=== PATIENT | female | born 1960 | race Caucasian/White ===

== ENCOUNTER 2016-09-01 14:06 | Emergency (ER) | payer BC ==
[2016-09-01 14:48] VITALS: BP 115/65; PULSE 93; TEMP 97.9; BMI 25.7
--- NOTE | 2016-09-01 14:51 | PDOC ---
History of Present Illness - General History Source: Patient Exam Limitations: No Limitations - History of Present Illness Initial Comments: 09/01/16 15:53 The patient is a 56 year old female with significant past medical history of schizophrenia and depression who presents today s/p mechanical fall down stairs this afternoon. The patient states she tripped and fell down 7 stairs, and then rolled off the platform and fell onto the floor (equivalent of ~6 stairs). The patient states she hit her head but denies any LOC. The patient is currently complaining of left rib pain and right lower extremity pain. The rib pain is worse with deep inspiration and does not radiate. She cannot move her toes secondary to pain . The patient denies any headache. She denies any vision changes, blurry vision, or headache. She denies any nausea or vomiting since the fall. She denies recent illness, fevers, or chills. <Clara Landa - Last Filed: 09/01/16 15:53> <Umesh Schultz - Last Filed: 09/01/16 20:13> - General Chief Complaint: Injury Stated Complaint: FALL Time Seen by Provider: 09/01/16 14:35 Past History <Clara Landa - Last Filed: 09/01/16 15:53> - Past Medical History Psychiatric Problems: Yes (depression, schizophrenia) - Surgical History Appendectomy: Yes - Psycho/Social/Smoking Cessation Hx Anxiety: No Suicidal Ideation: No Smoking Status: No Smoking History: Never smoked Have you smoked in the past 12 months: No Number of Cigarettes Smoked Daily: 0 Information on smoking cessation initiated: No Hx Alcohol Use: No Drug/Substance Use Hx: No Substance Use Type: None <Umesh Schultz - Last Filed: 09/01/16 20:13> - Past Medical History Allergies/Adverse Reactions: Allergies Allergy/AdvReac Type Severity Reaction Status Date / Time No Known Allergies Allergy Verified 09/01/16 14:48 Home Medications: Ambulatory Orders Alprazolam [Xanax] 1 mg PO BID PRN #14 tablet 02/01/14 BUPROPion HCL "SR" [Wellbutrin Sr -] 150 mg PO BID 02/01/14 Buspirone HCl [Buspar -] 5 mg PO BID 02/01/14 Phendimetrazine Tartrate 35 mg PO DAILY 02/01/14 Risperidone 1 mg PO DAILY 02/01/14 Trazodone HCl [Desyrel -] 100 mg PO HS 02/01/14 Oxycodone HCl/Acetaminophen [Percocet 5-325 mg Tablet] 1 - 2 tab PO Q6H PRN #30 tab MDD 8 09/01/16 Review of Systems - Review of Systems Constitutional: No: Chills, Fever Respiratory: Yes: Shortness of Breath Musculoskeletal: Yes: Joint Pain, Muscle Pain All Other Systems: Reviewed and Negative <Umesh Schultz - Last Filed: 09/01/16 20:13> *Physical Exam - Vital Signs Last Vital Signs Temp Pulse Resp BP Pulse Ox 97.9 F 93 H 20 115/65 93 L 09/01/16 14:44 09/01/16 14:44 09/01/16 14:44 09/01/16 14:44 09/01/16 14:44 - Physical Exam Comments: 09/01/16 15:54 General: Patient is alert and in no acute distress. Speech is clear and appropriate. Head: +2cm right forehead ecchymosis over the eyebrow, no laceration. HEENT: Pupils are equal round and reactive to light, extraocular movements are intact. The tympanic membranes are clear, no hemotympanum. No facial deformity/ tenderness, no septal hematoma. The oropharynx is clear. Neck: The trachea is midline, there is no stridor. There is no midline cervical spine tenderness, full range of motion of neck. +Some left paraspinal discomfort with ROM of the neck. No JVD. Chest: +Left ribs with diffuse tenderness to palpation. Skin intact, no obvious bruising. Heart: +Slight tachycardic, regular rhythm. S1-S2. No murmurs. Lungs: Clear to auscultation bilaterally. Symmetric chest rise. Abdomen: Soft/nontender/nondistended. Bowel sounds are normal. There is no abdominal or flank ecchymosis. Back/Pelvis: There is no midline spine tenderness or step-off. Pelvis is stable and nontender. Extremities: +Right patella intact. There is gross deformity with ecchymosis and soft tissue swelling around the right mid tibia. Skin intact. Palpable dp pulses. Sensation is grossly intact. Remainder of extremities is normal. Neuro: Alert and oriented x3. Cranial nerves II through XII are intact. 5 out of 5 motor strength x4 extremities. Piugnq-winw-lxugyl is intact. No pronator drift. Gait is stable. Skin: No abrasions/hematomas/lacerations unless noted elsewhere. Psych: Affect is appropriate. <CordellClara - Last Filed: 09/01/16 15:53> - Vital Signs Last Vital Signs Temp Pulse Resp BP Pulse Ox 97.9 F 93 H 20 115/65 93 L 09/01/16 14:44 09/01/16 14:44 09/01/16 14:44 09/01/16 14:44 09/01/16 14:44 <Umesh Schultz - Last Filed: 09/01/16 20:13> ED Treatment Course - LABORATORY CBC & Chemistry Diagram: 09/01/16 15:30 09/01/16 15:30 - Medications Given in the ED: ED Medications Discontinued Medications Generic Name Dose Route Start Last Admin Trade Name Freq PRN Reason Stop Dose Admin Hydromorphone HCl 0.5 mg 09/01/16 14:52 09/01/16 15:07 Dilaudid Injection - IVPUSH 09/01/16 14:53 0.5 mg ONCE ONE Administration Ondansetron HCl 4 mg 09/01/16 14:52 09/01/16 15:07 Zofran Injection IVPUSH 09/01/16 14:53 4 mg ONCE ONE Administration <Clara Landa - Last Filed: 09/01/16 15:53> - LABORATORY CBC & Chemistry Diagram: 09/01/16 15:30 09/01/16 15:30 <Umesh Schultz - Last Filed: 09/01/16 20:13> Medical Decision Making - Critical Care Time Total Critical Care Time (minutes): 40 Critical Care Statement: The care of this patient involved high complexity decision making to prevent further life threatening deterioration of the patient 's condition and/or to evalute & treat vital organ system(s) failure or risk of failure. - Medical Decision Making 09/01/16 15:17 A portion of this note was documented by scribe services under my direction. I have reviewed the details of the note, within reason, and agree with the documentation with the following case summary and management plan written by me. 56-year-old female with no significant past medical history p/w L rib and R leg pain after fall down stairs. + head injury without LOC. exam as noted likely rib fractures, r/o ptx ct head, ct cspine obvious R tib/fib fx, skin intact. Ortho consult pain control 09/01/16 19:06 Labs are within normal limits, CK is normal. Imaging notable only for left seventh rib fracture without pneumothorax or pleural effusion. There is no right tibia/fibula fracture, no pelvic or lumbar sacral spine fractures. On reassessment, patient remains neurovascularly intact and neurologically intact. She has a right anterior medial hematoma to the right julio, but has full range of motion without vascular or sensory compromise. Discussed with orthopedics, Dr. Bowser, any potential concern for compartment syndrome but given the location of the hematoma and the exam, can manage as outpatient with prompt follow-up in his office tomorrow. Percocet trial for rib fracture, which is currently the patient's main complaint. We'll reassess. 09/01/16 20:03 Now ambulating with some discomfort, respiratory status is normal, O2 sat is 99 % on room air. She is able to weight-bear on the right lower extremity, remains neurovascularly intact. Discussed the importance of pain control and incentive spirometry for her rib fracture, discussed the importance of ice and elevation for her right leg injury. Patient can follow-up with Dr. Salgado of orthopedics tomorrow. at bedside, understand return criteria. <Umesh Schultz - Last Filed: 09/01/16 20:13> *DC/Admit/Observation/Transfer - Attestations Scribe Attestion: 09/01/16 15:54 Documentation prepared by Clara Landa, acting as medical office administrator for Umesh Schultz MD. <Clara Landa - Last Filed: 09/01/16 15:53> <Umesh Schultz - Last Filed: 09/01/16 20:13> Diagnosis at time of Disposition: Accidental fall Qualifiers: Encounter type: initial encounter Qualified Code(s): W19.XXXA - Unspecified fall, initial encounter Lower leg fracture Qualifiers: Encounter type: initial encounter Fracture type: closed Laterality: right Qualified Code(s): S82.91XA - Unspecified fracture of right lower leg, initial encounter for closed fracture Left rib fracture Qualifiers: Encounter type: initial encounter Rib fracture type: single rib Fracture type: closed Qualified Code(s): S22.32XA - Fracture of one rib, left side, initial encounter for closed fracture - Discharge Dispostion Disposition: HOME Condition at time of disposition: Improved - Prescriptions Prescriptions: Oxycodone HCl/Acetaminophen [Percocet 5-325 mg Tablet] 1 - 2 tab PO Q6H PRN #30 tab MDD 8 PRN Reason: Pain - Referrals Referrals: Dorian Styles MD [Primary Care Provider] - Tyrone Salgado MD [Staff Physician] - - Patient Instructions Printed Discharge Instructions: DI for Rib Fracture, DI for Contusion Additional Instructions: Activity as tolerated. Stay hydrated. Sorry this happened to you. Extensive imaging shows that the only injury you sustained is a Left 7th rib fracture. The injury to your leg is a muscle bruise. Take percocet as prescribed as needed for pain. Percocet can make you lightheaded, so take proper precautions. It is very important that you take 10- 20 deep breaths every hour to expand your lungs and prevent infection. It is also very important that you ice and elevate the affected areas for 20 minutes every 3-4 hours to reduce swelling. Continue your medications as previously prescribed by your physician. You should follow up with Dr. Salgado of Orthopedics TOMORROW regarding the leg swelling. You should also see your primary doctor regarding today's emergency department visit. Return to the emergency department for any new or concerning symptoms, particularly difficulty breathing or fevers or chills, severe swelling or discoloration or numbness, intolerable pain.
[2016-09-01] MEDS ORDERED: ONDANSETRON 4 MG/2 ML VIAL IVPUSH ONE (14:52)
[2016-09-01] MEDS ORDERED: HYDROmorphone HCL CARPU-JECT 1 MG/1 ML DISP.SYRIN IVPUSH ONE (14:52)
[2016-09-01] MEDS ORDERED: HYDROmorphone HCL CARPU-JECT 1 MG/1 ML DISP.SYRIN ONE (14:56)
[2016-09-01] MEDS ORDERED: ONDANSETRON 4 MG/2 ML VIAL ONE (14:57)
[2016-09-01 15:52] LABS: BASOPHIL 0.4 % (0-2.0); EOSINOPHIL 1.4 % (0-4.5); MCH 29.8 pg (25.7-33.7); MCHC 33.2 g/dl (32.0-36.0); MEAN CELL VOLUME 89.8 fl (80-96); MEAN PLT VOLUME 8.1 fl (7.5-11.1); NEUTROPHILS 74.7 % (42.8-82.8); PLATELET COUNT 307 K/MM3 (134-434); RDW 13.5 % (11.6-15.6); WHITE BLOOD COUNT 10.9 K/mm3 (4.0-10.0)
[2016-09-01 16:12] LABS: ALBUMIN 3.8 g/dl (3.4-5.0); ANION GAP 9 (8-16); CALCIUM 9.9 mg/dL (8.5-10.1); CO2 26 mmol/L (21-32); CREATININE 0.9 mg/dL (0.55-1.02); GLUCOSE,RANDOM 88 mg/dL (74-106); SGOT/AST 18 U/L (15-37); SGPT/ALT 26 U/L (12-78)
[2016-09-01 16:15] LABS: ALK PHOS 92 U/L (45-117); BILIRUBIN,TOTAL 0.5 mg/dL (0.2-1.0); TROPONIN I < 0.02 ng/ml (0.00-0.05)
[2016-09-01 16:23] LABS: INR 1.12 (0.82-1.09); PROTHROMBIN TIME (PATIENT) 12.4 SEC (9.98-11.88)
[2016-09-01 16:25] LABS: ACTIVATED PTT 31.7 SECONDS (26.9-34.4)
[2016-09-01] MEDS ORDERED: OXYCODONE/APAP 5/325MG COMBO TABLET PO ONE (17:56)
[2016-09-01] MEDS ORDERED: OXYCODONE/APAP 5/325MG COMBO TABLET ONE (18:02)
[2016-09-01] MEDS ORDERED: KETOROLAC TROMETHAMINE 30 MG/1 ML VIAL IVPUSH ONE (19:38)
[2016-09-01] MEDS ORDERED: KETOROLAC TROMETHAMINE 30 MG/1 ML VIAL ONE (19:39)
== END 2016-09-01 20:38 | disposition home or self-care (01) ==
LOC: JER 14:06
PROC: 3E033NZ Introduction of Analgesics, Hypnotics, Sedatives into Peripheral Vein, Percutaneous Approach (ICD-10-PCS; principal; 2016-09-01)
PROC: 3E0333Z Introduction of Anti-inflammatory into Peripheral Vein, Percutaneous Approach (ICD-10-PCS; 2016-09-01)
PROC: 3E033GC Introduction of Other Therapeutic Substance into Peripheral Vein, Percutaneous Approach (ICD-10-PCS; 2016-09-01)
DX: S82.91XA Unspecified fracture of right lower leg, initial encounter for closed fracture (principal); S22.32XA Fracture of one rib, left side, initial encounter for closed fracture; W10.9XXA Fall (on) (from) unspecified stairs and steps, initial encounter; Y93.9 Activity, unspecified; Y92.9 Unspecified place or not applicable; F20.9 Schizophrenia, unspecified; F32.9 Major depressive disorder, single episode, unspecified
CPT/HCPCS: 36415; 70450-TC; 71101-TC; 72100-TC; 72125-TC; 72170-TC; 73590-TC-RT; 80053; 82550; 84484; 85025; 85610; 85730; 86850; 86900; 86901; 99282-25

== ENCOUNTER 2016-11-15 15:57 | Emergency (ER) | payer BC ==
[2016-11-15 16:19] VITALS: BP 132/99; PULSE 82; TEMP 97.9; BMI 27.6
[2016-11-15 17:05] LABS: BASOPHIL 1.2 % (0-2.0); EOSINOPHIL 5.3 % (0-4.5); MCH 29.7 pg (25.7-33.7); MCHC 32.9 g/dl (32.0-36.0); MEAN CELL VOLUME 90.3 fl (80-96); MEAN PLT VOLUME 8.1 fl (7.5-11.1); NEUTROPHILS 48.6 % (42.8-82.8); PLATELET COUNT 366 K/MM3 (134-434); RDW 13.1 % (11.6-15.6); WHITE BLOOD COUNT 8.9 K/mm3 (4.0-10.0)
[2016-11-15] MEDS ORDERED: OXYCODONE/APAP 5/325MG COMBO TABLET PO ONE (17:27)
[2016-11-15] MEDS ORDERED: CYCLOBENZAPRINE HCL 10 MG TABLET (FP) PO ONE (17:27)
[2016-11-15] MEDS ORDERED: CYCLOBENZAPRINE HCL 10 MG TABLET (FP) ONE (17:32)
[2016-11-15] MEDS ORDERED: OXYCODONE/APAP 5/325MG COMBO TABLET ONE (17:32)
--- NOTE | 2016-11-15 17:37 | PDOC ---
History of Present Illness - General History Source: Patient Exam Limitations: No Limitations - History of Present Illness Initial Comments: 11/15/16 18:11 The patient is a 56 year old female, with a significant past medical history of schizophrenia and depression, who presents to the emergency department with chest pain for the past 3 days. She describes her chest pain as ranging from mild to moderate, without radiation. She notes that the pain is exacerbated when she moves in certain positions. She denies any recent injuries or illness. Upon arrival a rapid response was called as the patients chest pain exacerbated. The patient denies shortness of breath, headache and dizziness. Denies fever, chills, nausea, vomit, diarrhea and constipation. Denies dysuria, frequency, urgency and hematuria. Allergies: Past surgical history: Appendectomy Social history: No alcohol, tobacco or drug use reported <Kwaku Nicole - Last Filed: 11/15/16 18:10> - General History Source: Patient, Family Exam Limitations: No Limitations <Supa Limon - Last Filed: 11/15/16 19:51> - General Chief Complaint: Chest Pain Stated Complaint: PAIN Time Seen by Provider: 11/15/16 17:00 Past History <Kwaku Nicole - Last Filed: 11/15/16 18:10> - Past Medical History Psychiatric Problems: Yes (depression, schizophrenia) - Surgical History Appendectomy: Yes - Psycho/Social/Smoking Cessation Hx Anxiety: Yes Suicidal Ideation: No Smoking Status: No Smoking History: Never smoked Have you smoked in the past 12 months: No Number of Cigarettes Smoked Daily: 0 Hx Alcohol Use: No Drug/Substance Use Hx: No Substance Use Type: None <Supa Limon - Last Filed: 11/15/16 19:51> - Past Medical History Allergies/Adverse Reactions: Allergies Allergy/AdvReac Type Severity Reaction Status Date / Time No Known Allergies Allergy Verified 11/15/16 16:14 Home Medications: Ambulatory Orders BUPROPion HCL "SR" [Wellbutrin Sr -] 150 mg PO DAILY 02/01/14 Risperidone 1 mg PO DAILY 02/01/14 Trazodone HCl [Desyrel -] 100 mg PO HS 02/01/14 Cyclobenzaprine HCl [Flexeril 10 mg] 10 mg PO TID PRN #21 tablet 11/15/16 Oxycodone HCl/Acetaminophen [Percocet 5-325 mg Tablet] 1 tab PO Q6H PRN #15 tablet MDD 4 11/15/16 Paroxetine HCl [Paxil] 0 mg PO DAILY 11/15/16 Review of Systems - Review of Systems Able to Perform ROS?: Yes Comments:: 11/15/16 18:11 GENERAL/CONSTITUTIONAL: No fever or chills. No weakness. HEAD, EYES, EARS, NOSE AND THROAT: No change in vision. No ear pain or discharge. No sore throat. CARDIOVASCULAR: (+) Chest pain. No shortness of breath RESPIRATORY: No cough, wheezing, or hemoptysis. GASTROINTESTINAL: No nausea, vomiting, diarrhea or constipation. GENITOURINARY: No dysuria, frequency, or change in urination. MUSCULOSKELETAL: No joint or muscle swelling or pain. No neck or back pain. SKIN: No rash NEUROLOGIC: No headache, vertigo, loss of consciousness, or change in strength/ sensation. ENDOCRINE: No increased thirst. No abnormal weight change HEMATOLOGIC/LYMPHATIC: No anemia, easy bleeding, or history of blood clots. ALLERGIC/IMMUNOLOGIC: No hives or skin allergy. <Kwaku Nicole - Last Filed: 11/15/16 18:10> *Physical Exam - Vital Signs Last Vital Signs Temp Pulse Resp BP Pulse Ox 97.9 F 82 18 132/99 99 11/15/16 16:00 11/15/16 16:00 11/15/16 16:00 11/15/16 16:00 11/15/16 16:00 - Physical Exam Comments: 11/15/16 18:10 GENERAL: Awake, alert, and fully oriented, in no acute distress HEAD: No signs of trauma, normocephalic, atraumatic EYES: PERRLA, EOMI, sclera anicteric, conjunctiva clear ENT: Auricles normal inspection, hearing grossly normal, nares patent, oropharynx clear without exudates. Moist mucosa NECK: Normal ROM, supple, no lymphadenopathy, JVD, or masses LUNGS: No distress, speaks full sentences, clear to auscultation bilaterally HEART: Regular rate and rhythm, normal S1 and S2, no murmurs, rubs or gallops, peripheral pulses normal and equal bilaterally. ABDOMEN: Soft, nontender, normoactive bowel sounds. No guarding, no rebound. No masses MUSCULOSKELETAL: (+) Right lateral chest with tenderness to palpation with muscle spasm. EXTREMITIES: Normal inspection, Normal range of motion, no edema. No clubbing or cyanosis. NEUROLOGICAL: Cranial nerves II through XII grossly intact. Normal speech, normal gait, no focal sensorimotor deficits SKIN: Warm, Dry, normal turgor, no rashes or lesions noted. <Kwaku Nicole - Last Filed: 11/15/16 18:10> - Vital Signs Last Vital Signs Temp Pulse Resp BP Pulse Ox 97.9 F 82 18 132/99 99 11/15/16 16:00 11/15/16 16:00 11/15/16 16:00 11/15/16 16:00 11/15/16 16:00 <Supa Limon - Last Filed: 11/15/16 19:51> Heart Score/ECG Review - History History: Slightly suspicious - Electrocardiogram EKG: Normal - Age Age: 45-65 - Risk Factors Based on the list above the patient has:: No risk factors known - Troponin Troponin: </= normal limit - Score Heart Score - Total: 1 #1 ECG reviewed & interpreted by me at: 16:10 11/15/16 17:32 NSR 85, no std/harshal, normal axis, normal intervals, QTC 421 msec <Supa Limon - Last Filed: 11/15/16 19:51> ED Treatment Course - LABORATORY CBC & Chemistry Diagram: 11/15/16 16:58 11/15/16 16:58 - ADDITIONAL ORDERS Additional order review: Laboratory Results 11/15/16 16:58 Sodium 143 Potassium 4.5 Chloride 106 Carbon Dioxide 27 Anion Gap 10 BUN 23 H Creatinine 1.1 H D Creat Clearance w eGFR 51.20 Random Glucose 98 Calcium 10.1 Total Bilirubin 0.2 D AST 20 ALT 40 D Alkaline Phosphatase 126 H D Creatine Kinase 97 Troponin I < 0.02 C-Reactive Protein < 0.3 Total Protein 7.4 Albumin 4.0 11/15/16 16:58 RBC 4.27 MCV 90.3 MCHC 32.9 RDW 13.1 MPV 8.1 Neutrophils % 48.6 D Lymphocytes % 36.5 D Monocytes % 8.4 Eosinophils % 5.3 H D Basophils % 1.2 - Medications Given in the ED: ED Medications Discontinued Medications Generic Name Dose Route Start Last Admin Trade Name Mai PRN Reason Stop Dose Admin Cyclobenzaprine HCl 10 mg 11/15/16 17:27 11/15/16 17:35 Flexeril - PO 11/15/16 17:28 10 mg ONCE ONE Administration Oxycodone/Acetaminophen 1 combo 11/15/16 17:27 11/15/16 17:35 Percocet 5/325 - PO 11/15/16 17:28 1 combo ONCE ONE Administration <Kwaku Nicole - Last Filed: 11/15/16 18:10> - LABORATORY CBC & Chemistry Diagram: 11/15/16 16:58 11/15/16 16:58 - ADDITIONAL ORDERS Additional order review: 11/15/16 16:58 RBC 4.27 MCV 90.3 MCHC 32.9 RDW 13.1 MPV 8.1 Neutrophils % 48.6 D Lymphocytes % 36.5 D Monocytes % 8.4 Eosinophils % 5.3 H D Basophils % 1.2 - RADIOLOGY Radiology Studies Ordered: Category Date Time Status CHEST PA & LAT [RAD] Stat Radiology 11/15/16 16:38 Ordered <Supa Limon - Last Filed: 11/15/16 19:51> Medical Decision Making - Medical Decision Making 11/15/16 17:33 A portion of this note was documented by scribe services under my direction. I have reviewed the details of the note, within reason, and agree with the documentation with the following case summary and management plan written by me. Patient treated in the ED. Nursing notes are reviewed and incorporated into the medical decision-making. Vital signs reviewed. Peripheral IV access obtained by the nurse, laboratory studies are drawn and sent, reviewed and interpreted by myself. Vital Signs Temp Pulse Resp BP Pulse Ox 97.9 F 82 18 132/99 99 11/15/16 16:00 11/15/16 16:00 11/15/16 16:00 11/15/16 16:00 11/15/16 16:00 56-year-old female with history of anxiety presents with right chest wall pain. Patient reports that on Tuesday, she started developing right chest wall spasms. Denies recent illnesses, injuries, increased exercising or activity. Stated that every time she moves or touches the right side the chest, she feels muscle spasm. Denies midsternal chest pressure shortness of breath. Denies radiation. She saw her primary care physician today Dr. Styles who sent the patient for outpatient blood work including CBC with differential, ESR and a chest x-ray PA and lateral. However, upon arrival to registration, patient started developing severe right chest wall spasm and rapid response was called. Patient is brought to the ED. Patient's EKG is reassuring. The blood work was ordered as requested by the primary care physician. Chest x-ray ordered as well. However, I suspect that this is muscle spasm from the physical exam. We'll trial Percocet and Flexeril reassess. 11/15/16 19:47 CBC, BMP 11/15/16 16:58 11/15/16 16:58 CMP Sodium 143 mmol/L (136-145) 11/15/16 16:58 Potassium 4.5 mmol/L (3.5-5.1) 11/15/16 16:58 Chloride 106 mmol/L (98-107) 11/15/16 16:58 Carbon Dioxide 27 mmol/L (21-32) 11/15/16 16:58 Anion Gap 10 (8-16) 11/15/16 16:58 BUN 23 mg/dL (7-18) H 11/15/16 16:58 Creatinine 1.1 mg/dL (0.55-1.02) H D 11/15/16 16:58 Creat Clearance w eGFR 51.20 (>60) 11/15/16 16:58 Random Glucose 98 mg/dL (74-106) 11/15/16 16:58 Calcium 10.1 mg/dL (8.5-10.1) 11/15/16 16:58 Total Bilirubin 0.2 mg/dL (0.2-1.0) D 11/15/16 16:58 AST 20 U/L (15-37) 11/15/16 16:58 ALT 40 U/L (12-78) D 11/15/16 16:58 Alkaline Phosphatase 126 U/L (45-117) H D 11/15/16 16:58 Creatine Kinase 97 IU/L (26-192) 11/15/16 16:58 Troponin I < 0.02 ng/ml (0.00-0.05) 11/15/16 16:58 C-Reactive Protein < 0.3 MG/DL (0.00-0.3) 11/15/16 16:58 Total Protein 7.4 g/dl (6.4-8.2) 11/15/16 16:58 Albumin 4.0 g/dl (3.4-5.0) 11/15/16 16:58 11/15/16 19:47 ESR 17. Chest xray reviewed. Calcification vs. nodule on left 4th rib. Recommends CT scan. Results given to the patient. Pending CT chest. Pt reports feeling better with percocet and flexeril. Case signed out to [facility] ED attending DR. Donald for further management and disposition. <Supa Limon - Last Filed: 11/15/16 19:51> *DC/Admit/Observation/Transfer - Attestations Scribe Attestion: 11/15/16 18:10 Documentation prepared by Kwaku Nicole, acting as medical review specialist for Supa Limon MD <Kwaku Nicole - Last Filed: 11/15/16 18:10> - Discharge Dispostion Admit: No <Supa Limon - Last Filed: 11/15/16 19:51> Diagnosis at time of Disposition: Muscle spasm - Discharge Dispostion Condition at time of disposition: Improved - Prescriptions Prescriptions: Cyclobenzaprine HCl [Flexeril 10 mg] 10 mg PO TID PRN #21 tablet PRN Reason: Muscle Spasm Oxycodone HCl/Acetaminophen [Percocet 5-325 mg Tablet] 1 tab PO Q6H PRN #15 tablet MDD 4 PRN Reason: Pain Level 6-10 - Referrals Referrals: Dorian Styles MD [Primary Care Provider] - - Patient Instructions Printed Discharge Instructions: DI for Atypical Chest Pain Additional Instructions: Your right sided chest pain is likely secondary to the spasm. Please bring a copy of your reports to your doctor. Take 1 tablet of percocet every 6 hours as needed for pain. For muscle spasm, please take a tablet of flexeril every 8 hours as needed. This medication may make you drowsy so please do not drink or drive. Follow up with your doctor.
[2016-11-15 17:42] LABS: ANION GAP 10 (8-16); BILIRUBIN,TOTAL 0.2 mg/dL (0.2-1.0); CALCIUM 10.1 mg/dL (8.5-10.1); CO2 27 mmol/L (21-32); CREATININE 1.1 mg/dL (0.55-1.02); GLUCOSE,RANDOM 98 mg/dL (74-106); SGOT/AST 20 U/L (15-37); SGPT/ALT 40 U/L (12-78); TOT PROT 7.4 g/dl (6.4-8.2)
[2016-11-15 17:44] LABS: ALK PHOS 126 U/L (45-117); C-REACTIVE PROTEIN < 0.3 MG/DL (0.00-0.3); TROPONIN I < 0.02 ng/ml (0.00-0.05)
[2016-11-15 18:40] LABS: ERYTHROCYTE SEDIMENTATION RATE 17 mm/hr (0-30)
[2016-11-15] MEDS ORDERED: diazePAM 5 MG TABLET PO ONE (18:41)
[2016-11-15] MEDS ORDERED: diazePAM 5 MG TABLET ONE (20:39)
--- NOTE | 2016-11-16 11:37 | EKG ---
Test Reason : Blood Pressure : / mmHG Vent. Rate : 085 BPM Atrial Rate : 085 BPM P-R Int : 180 ms QRS Dur : 072 ms QT Int : 354 ms P-R-T Axes : 063 033 030 degrees QTc Int : 421 ms NORMAL SINUS RHYTHM WITH SINUS ARRHYTHMIA NORMAL ECG WHEN COMPARED WITH ECG OF 01-FEB-2014 14:14, NO SIGNIFICANT CHANGE WAS FOUND Confirmed by JOSE MILES MD ([id number]) on 11/16/2016 11:36:40 AM Referred By: Confirmed By:JOSE MILES MD
== END 2016-11-15 22:07 | disposition home or self-care (01) ==
LOC: JER 15:57
DX: M62.838 Other muscle spasm (principal); F41.9 Anxiety disorder, unspecified; F20.9 Schizophrenia, unspecified
CPT/HCPCS: 36415; 71020-TC; 71250-TC; 80053; 82550; 84484; 85025; 85651; 86140; 93005; 93010; 99282-25

== ENCOUNTER 2021-12-18 04:10 | Day surgery (SDC) | payer OTHER ==
[2021-12-16 10:55] VITALS: BMI 29.3
[2021-12-18] MEDS ORDERED: LIDOCAINE HCL/PF 1% SDV 5ML VIAL ONE (07:17)
[2021-12-18] MEDS ORDERED: DEXAMETHASONE SOD PHOSPHATE 10 MG/1 ML VIAL ONE (07:17)
[2021-12-18] MEDS ORDERED: DEXAMETHASONE SOD PHOSPHATE 10 MG/1 ML VIAL IVPUSH ONE (12:17)
[2021-12-18] MEDS ORDERED: IOHEXOL 180 MG/1 ML ML IJ ONE (12:17)
[2021-12-18] MEDS ORDERED: LIDOCAINE HCL 1% PRESERVATIVE FREE - 30ML VIAL IJ ONE (12:17)
[2021-12-18] MEDS ORDERED: ACETAMINOPHEN 325 MG TABLET (FP) ONE (12:50)
[2021-12-18 17:54] VITALS: BP 150/70; PULSE 80; TEMP 97.2
== END 2021-12-18 17:30 | disposition home or self-care (01) ==
LOC: JASU-SURG 04:10
PROVIDERS: ATTEND Pain Medicine Pain Medicine
PROC: 3E0R33Z Introduction of Anti-inflammatory into Spinal Canal, Percutaneous Approach (ICD-10-PCS; 2021-12-18)
PROC: 3E0R3BZ Introduction of Anesthetic Agent into Spinal Canal, Percutaneous Approach (ICD-10-PCS; principal; 2021-12-18 10:30)
DX: M54.16 Radiculopathy, lumbar region (principal)
CPT/HCPCS: 76000-TC-FY; J1100

== ENCOUNTER 2022-10-15 17:53 | Emergency (ER) | payer OTHER ==
[2022-10-15 18:02] VITALS: BP 160/92; PULSE 101; RESP 18; TEMP 98; BMI 30.9
[2022-10-15] MEDS ORDERED: LIDOCAINE 5% TOPICAL PATCH TP ONE (19:17)
[2022-10-15] MEDS ORDERED: LIDOCAINE 5% TOPICAL PATCH ONE (19:25)
[2022-10-15 20:13] LABS: BASO % 0.9 % (0-2.0); EOS % 3.1 % (0-4.5); HEMATOCRIT 40.2 % (32.4-45.2); MCH 30.9 pg (25.7-33.7); MCHC 34.9 g/dl (32.0-36.0); MEAN CELL VOLUME 88.6 fl (80-96); MEAN PLT VOLUME 7.9 fl (7.5-11.1); MONO % 6.6 % (3.8-10.2); NEUT % 62.4 % (42.8-82.8); PLATELET COUNT 334 10^3/uL (134-434); RBC 4.54 M/mm3 (3.60-5.2); RDW 13.6 % (11.6-15.6); WHITE BLOOD COUNT 10.5 K/mm3 (4.0-10.0)
[2022-10-15 20:34] LABS: CALCIUM 10.4 mg/dL (8.5-10.1)
[2022-10-15 20:35] LABS: ALBUMIN 3.9 g/dl (3.4-5.0); BLOOD UREA NITROGEN 24.4 mg/dL (7-18)
[2022-10-15 20:38] LABS: CREATININE 0.9 mg/dL (0.55-1.3)
[2022-10-15 20:39] LABS: BILIRUBIN,TOTAL 0.4 mg/dL (0.2-1)
[2022-10-15 20:40] LABS: TOT PROT 7.3 g/dl (6.4-8.2)
[2022-10-16] MEDS ORDERED: LIDOCAINE PATCH REMOVAL MC SCH (07:00)
== END 2022-10-15 22:48 | disposition home or self-care (01) ==
LOC: JER 17:53
DX: S20.20XA Contusion of thorax, unspecified, initial encounter (principal); M25.511 Pain in right shoulder; M25.521 Pain in right elbow; W10.9XXA Fall (on) (from) unspecified stairs and steps, initial encounter
CPT/HCPCS: 36415; 71046-TC-FY; 71250-TC; 73030-TC-RT-FY; 73060-TC-RT-FY; 73070-TC-RT-FY; 80053; 85025; 99285-25

== ENCOUNTER → 2023-05-09 | Day surgery (SDC) | payer OTHER ==
[2023-05-06 12:09] VITALS: BMI 29.3
[~2023-05-09] MED LIST: FENTANYL CITRATE/PF 50 MCG/ML VIAL ONE; MIDAZOLAM HCL 2 MG/2 ML SINGLE DOSE VIAL ONE; ONDANSETRON 4 MG/2 ML VIAL ONE
== END | disposition home or self-care (01) ==
LOC: JASU-SURG 04:48
PROVIDERS: ATTEND Urology
DX: Z53.8 Procedure and treatment not carried out for other reasons (principal)

== ENCOUNTER → 2023-07-04 | Day surgery (SDC) | payer OTHER ==
[2023-06-28 15:32] VITALS: BMI 29.3
[2023-07-04 08:24] VITALS: BP 154/81; PULSE 72; RESP 20; TEMP 97.1
== END | disposition home or self-care (01) ==
LOC: JASU-SURG 04:22
PROVIDERS: ATTEND Urology
DX: Z53.8 Procedure and treatment not carried out for other reasons (principal)

== ENCOUNTER 2023-08-01 04:10 | Day surgery (SDC) | payer OTHER ==
[2023-07-27 16:56] VITALS: BMI 29.3
[2023-08-01] MEDS ORDERED: MIDAZOLAM HCL 2 MG/2 ML SINGLE DOSE VIAL ONE (15:44)
[2023-08-01 16:22] VITALS: RESP 18; TEMP 97.8
[2023-08-01] MEDS ORDERED: ACETAMINOPHEN 325 MG TABLET (FP) ONE (18:26)
[2023-08-01] MEDS: ACETAMINOPHEN 325 MG TABLET (FP) PO ONE (18:27)
[2023-08-01] MEDS ORDERED: ACETAMINOPHEN 325 MG TABLET (FP) PO ONE (18:45)
[2023-08-01 18:53] VITALS: BP 149/80; PULSE 60
== END 2023-08-01 18:47 | disposition home or self-care (01) ==
LOC: JASU-SURG 04:10
PROVIDERS: ATTEND Urology
PROC: 0TF4XZZ Fragmentation in Left Kidney Pelvis, External Approach (ICD-10-PCS; principal; 2023-08-01 13:00)
DX: N20.0 Calculus of kidney (principal)

== ENCOUNTER 2023-11-22 03:50 | Day surgery (SDC) | payer OTHER ==
[2023-11-18 08:58] VITALS: BMI 29.3
[2023-11-22 08:33] VITALS: RESP 18
[2023-11-22] MEDS ORDERED: FENTANYL CITRATE/PF 50 MCG/ML VIAL ONE (11:14)
[2023-11-22] MEDS ORDERED: MIDAZOLAM HCL 2 MG/2 ML SINGLE DOSE VIAL ONE (11:14)
[2023-11-22 13:19] VITALS: BP 133/77; PULSE 56; TEMP 98.4
== END 2023-11-22 13:07 | disposition home or self-care (01) ==
LOC: JASU-SURG 03:50
PROVIDERS: ATTEND Urology
PROC: 0TF4XZZ Fragmentation in Left Kidney Pelvis, External Approach (ICD-10-PCS; principal; 2023-11-22 10:30)
DX: N20.0 Calculus of kidney (principal)